=== PATIENT | male | born 1990 | race African-American/Black ===

== ENCOUNTER 2017-05-01 17:13 | Emergency (ER) | payer SELFPAY ==
[2017-05-01 17:23] VITALS: BP 141/79
--- NOTE | 2017-05-01 18:11 | ERNOTE ---
Integumentary HPI - General Presenting Symptoms: abscess Time Seen by Provider: 05/01/17 17:31 Source: patient Exam Limitations: no limitations - Immun/Allergies/Home Medications Allergies/Adverse Reactions: Allergies Allergy/AdvReac Type Severity Reaction Status Date / Time Penicillins Allergy Verified 05/01/17 17:23 Home Medications: HOME MEDICATIONS Sulfamethoxazole/Trimethoprim [Bactrim Ds] 1 tab PO BID #20 tab 05/01/17 [Last Taken Unknown] traMADol HCL [Ultram] 50 mg PO QID PRN #20 tablet 05/01/17 [Last Taken Unknown] - Pain Pain Score: 9 - History of Present Illness Narrative: Patient presents with an abscess in his left groin area that is moderately severe in pain and is having difficulty ambulating because of pain. Location: Reports: other - groin Quality: Reports: painful Severity: moderate, severe Exposure: Reports: no cause identified Associated Symptoms: Reports: swelling/mass/lumps Review of Systems - Review of Systems Constitutional: Present: See HPI EYE: Present: no symptoms reported ENT: Present: no symptoms reported Respiratory: Present: no symptoms reported Cardiology: Present: no symptoms reported Gastrointestinal/Abdominal: Present: no symptoms reported Genitourinary: Present: no symptoms reported Musculoskeletal: Present: no symptoms reported Skin: Present: See HPI Neurological: Present: no symptoms reported Endocrine: Present: no symptoms reported Hematologic/Lymphatic: Present: no symptoms reported Psych: Present: no symptoms reported - Patient's Past Medical History Patient History - Medical: No pertinent hx, Other - previous abscess left groin Patient History - Cardiac/Respiratory: No pertinent hx Patient History - Cancer: No Hx of Cancer Patient History - Surgical Procedures: Appendectomy Patient History - Other: None - Social History Living Situations: home Psych History: No pertinent hx Alcohol Use: none Drug Use: none Physical Exam - Physical Exam General Appearance: Present: wd/wn, alert, moderate distress, severe distress Head Exam: Present: normal inspection, no evidence of injury Eye Exam: Normal inspection: bilateral, PERRL: bilateral Ears, Nose, Throat: Present: normal ENT inspection, H, normal pharynx Neck: Present: normal inspection, nontender Respiratory: Present: no respiratory distress, normal breath sounds, no accessory muscle use, chest nontender, lungs clear Cardiovascular/Chest: Present: regular rate, rhythm, no murmur, normal peripheral pulses Gastrointestinal/Abdominal: Present: normal bowel sounds, nontender, nondistended, soft, no organomegaly Rectal Exam: Present: deferred Back Exam: Present: normal inspection, normal range of motion Extremity Exam: Present: normal inspection, non-tender, no edema, normal range of motion Neurological Exam: Present: alert, oriented, normal mood/affect Skin Exam: Present: warm/dry, other - approximate 1 cm abscess in the left groin area Lymphatic Exam: Present: no adenopathy ED Progress - Vital Signs Patient's Vital Signs:: I have reviewed the patient's vital signs. Vital Signs: Vital Signs 05/01/17 17:19 Temperature 36.6 C Pulse Rate 88 Respiratory 12 Rate Blood Pressure 141/79 O2 Sat by Pulse 100 Oximetry - Progress/Reassessment Chief Complaint: Abscess Plan - Plan Plan: The abscess ruptured open while he was taking his pants off with copious mucopurulent drainage. Wound cultures were obtained and patient will be started on Bactrim and tramadol for the pain. Patient was instructed on using Hibiclens soap to help minimize any staph bacteria. We also discussed the likelihood of hidradenitis suppurativa the phase being part of the etiology. Departure Clinical Impression: Abscess - Departure Disposition: Home self-care Condition: Good Instructions: Incision and Drainage, Care After, Disposable Sitz Bath, Abscess , [id number] Additional Instructions: #1 week sure to do sitz baths at least twice a day #2 buy Hibiclens soap to help keep the area clean Prescriptions: Sulfamethoxazole/Trimethoprim [Bactrim Ds] 1 tab PO BID #20 tab traMADol HCL [Ultram] 50 mg PO QID PRN #20 tablet PRN Reason: Moderate Pain (Pain Scale 4-6)
== END 2017-05-01 18:15 | disposition home or self-care (01) ==
LOC: ER 17:13
DX: L02.214 Cutaneous abscess of groin (principal)